=== PATIENT | male | born 1950 | race Caucasian/White ===

== ENCOUNTER → 2017-02-07 | Outpatient (CLI) | payer MEDICARE ==
[2017-02-07 19:28] LABS: ALT 130 U/L (21-72); AST 66 U/L (17-59); Alkaline Phosphatase 44 U/L (38-126); Anion Gap 12 mmol/L; Blood Urea Nitrogen 22 mg/dL (9-20); Calcium 9.7 mg/dL (8.4-10.2); Carbon Dioxide 26 mmol/L (22-30); Chloride 100 mmol/L (98-107); Cholesterol 182 mg/dL (<200); Glucose 202 mg/dL (74-99); HDL Cholesterol 31 mg/dL (40-60); Non-African American GFR(MDRD) >60 (>60 ml/min/1.73 sqM); Potassium 4.5 mmol/L (3.5-5.1); Sodium 138 mmol/L (137-145); Total Bilirubin 1.1 mg/dL (0.2-1.3); Total Protein 7.6 g/dL (6.3-8.2); Triglycerides 312 mg/dL (<150)
[2017-02-07 19:57] LABS: Hemoglobin A1C 7.5 % (4.2-6.1)
== END ==
LOC: MMGSC 13:35
PROVIDERS: ATTEND Family Medicine
DX: I10 Essential (primary) hypertension (principal); E11.9 Type 2 diabetes mellitus without complications; E78.00 Pure hypercholesterolemia, unspecified
CPT/HCPCS: 36415; 80053; 80061; 83036

== ENCOUNTER → 2017-04-17 | Outpatient (CLI) | payer MEDICARE ==
[2017-04-17 19:43] LABS: ALT 108 U/L (21-72); AST 43 U/L (17-59); Alkaline Phosphatase 46 U/L (38-126); Bilirubin, Delta 0.3 mg/dL (0.0-0.2); Cholesterol 158 mg/dL (<200); HDL Cholesterol 34 mg/dL (40-60); Total Bilirubin 0.8 mg/dL (0.2-1.3); Total Protein 7.3 g/dL (6.3-8.2); Triglycerides 199 mg/dL (<150)
[2017-04-17 20:05] LABS: Iron 75 ug/dL (49-181)
[2017-04-17 20:15] LABS: % Iron Saturation 25.2 % (20-50); Total Iron Binding Capacity 298 ug/dL (261-462)
[2017-04-17 20:18] LABS: Hepatitis B Surface Ag Index 0.05
[2017-04-17 20:23] LABS: Hepatitis B Core IgM Index 0.03
[2017-04-17 20:35] LABS: Hepatitis C Virus IgG Ab Negative (Negative); Hepatitis C Virus IgG Index 0.02
== END | disposition home or self-care (01) ==
LOC: MMGSC 10:05
PROVIDERS: ATTEND Family Medicine
DX: E78.5 Hyperlipidemia, unspecified (principal); R74.8 Abnormal levels of other serum enzymes
CPT/HCPCS: 36415; 80061; 80074; 80076; 82390; 82728; 83516; 83540; 83550

== ENCOUNTER → 2017-08-30 | Outpatient (CLI) | payer MEDICARE ==
--- NOTE | 2017-08-30 09:26 | CT ---
EXAMINATION TYPE: CT image guided sinus DATE OF EXAM: 08/30/2017 COMPARISON: 11/07/2013 HISTORY: 67-year-old male Sinusitis, pre op exam for surgical navigational purposes. TECHNIQUE: Contiguous axial scanning of the paranasal sinuses without IV contrast. CT DLP: 594 mGycm Automated exposure control for dose reduction was used. FINDINGS: There is moderate mucosal thickening throughout the paranasal sinuses, more severe in the ethmoid air cells with complete opacification of the left sphenoid sinus, relatively similar prior. There is telma dence of prior Fess with medial maxillary antrectomies. The some rounded masslike areas are present suspected to represent polyposis. A dominant mass previou sly seen in the right nasal cavity is no longer present. There is a new 1.5 cm mass in the left nasal cavity, axial image 22. Rightward nasal septal deviation. Mastoid air cells and middle ear cavities are clear. Orbits and globes are intact. There is mild reac tive katty-osteogenesis of the maxillary sinus lynch compatible with long-standing sinusitis. IMPRESSION: 1. IMAGING PERFORMED FOR INTRAOPERATIVE NAVIGATION. 2. PRIOR FESS AND LONG-STANDING PARANASAL SINUS DISEASE. 3. A SUSPECTED POLYP IN THE RIGHT NASAL CAVITY SEEMS TO HAVE BEEN RESECTED FROM 2013. THERE IS A NEW 1.5 CM SUSPECTED POLYP IN THE LEFT NASAL CAVITY, AXIAL IMAGE 22.
== END | disposition home or self-care (01) ==
LOC: RADCTMAIN 07:48
PROVIDERS: ATTEND Otolaryngology
DX: J32.8 Other chronic sinusitis (principal)
CPT/HCPCS: 70486

== ENCOUNTER 2017-09-14 09:22 | Day surgery (SDC) | payer MEDICARE ==
[2017-09-11 09:01] VITALS: BMI 33.0
[~2017-09-14 09:22] MED LIST: DEXAMETHASONE SOD PHOSPHATE 4 MG/ML 1 ML VIAL IV ONE; FAMOTIDINE 20 MG/2 ML VIAL IV ONE; LACTATED RINGERS 1,000 ML IV SCH; MORPHINE SULFATE 2 MG/ML SYRINGE IV PRN; ONDANSETRON 4 MG/2 ML VIAL IVP ONE; ONDANSETRON 4 MG/2 ML VIAL IVP PRN; ceFAZolin IN SWFI 2 GM/20 ML SYRINGE IVP ONE
[2017-09-14] MEDS: OXYMETAZOLINE 0.05% NASL SPRAY 1 SPRAY BOTTLE NASAL ONE ×5 (09:47→10:11)
[2017-09-14 10:02] LABS: Glucose,Whole Blood 126 mg/dL (75-99)
[2017-09-14] MEDS ORDERED: DEXAMETHASONE SOD PHOS (MDV) 100 MG/10 ML VIAL IVP ONE (10:22)
[2017-09-14] MEDS ORDERED: LIDOCAINE 1% INJ 10MG/ML (20 ML MDV) ONE (11:07)
[2017-09-14] MEDS ORDERED: GLYCOPYRROLATE 0.2 MG/ML 2 ML VIAL ONE (11:07)
[2017-09-14] MEDS ORDERED: PROPOFOL 10 MG/ML 20 ML VIAL IV ONE (11:07)
[2017-09-14] MEDS ORDERED: SUCCINYLCHOLINE CHLORIDE 100 MG/5 ML SYR IV ONE (11:07)
[2017-09-14] MEDS ORDERED: PHENYLEPHRINE-0.9% NACL SYG 1 MG/10 ML SYRINGE ONE (11:07)
[2017-09-14] MEDS ORDERED: ePHEDrine SULFATE/0.9% NACL/PF 50 MG/5 ML SYRINGE IV ONE (11:07)
[2017-09-14] MEDS ORDERED: HYDROmorphone (PF) 1 MG/ML ONE (11:07)
[2017-09-14] MEDS ORDERED: fentaNYL (PF) 50 MCG/ML 2 ML AMP ONE (11:07)
[2017-09-14] MEDS ORDERED: MIDAZOLAM 2 MG/2 ML VIAL ONE (11:07)
[2017-09-14] MEDS ORDERED: BUPIVACAIN-EPI 0.5%-1:200,000 30 ML VIAL SQ ONE ×2 (11:49)
[2017-09-14] MEDS ORDERED: FLUORESCEIN STRIPS 1 MG STRIP MISCELLANE ONE (11:49)
[2017-09-14] MEDS ORDERED: LIDOCAINE 1%-EPI 1:100,000 20 ML VIAL SUBMUCOSAL ONE ×2 (11:49)
[2017-09-14] MEDS ORDERED: EPINEPHrine 1 MG/ML (MDV) 30 ML VIAL TOPICAL ONE (11:50)
[2017-09-14] MEDS ORDERED: SODIUM CHLORIDE 0.9% 1,000 ML IV ONE (12:01)
[2017-09-14] MEDS ORDERED: LACTATED RINGERS 1,000 ML IV ONE (12:01)
[2017-09-14] MEDS ORDERED: DEXAMETHASONE SOD PHOSPHATE 10 MG/ML 1 ML VIAL PO ONE (12:07)
[2017-09-14] MEDS ORDERED: BACITRACIN 500 UNIT/GM OINT 28.4 GM TUBE TOPICAL ONE (12:21)
[2017-09-14 12:46] VITALS: TEMP 97
[2017-09-14 12:52] LABS: Glucose,Whole Blood 194 mg/dL (75-99)
--- NOTE | 2017-09-14 12:56 | P.OP ---
Date of Procedure: 09/14/17 Preoperative Diagnosis: Chronic pansinusitis with polyposis Deviated nasal septum Postoperative Diagnosis: Same Procedure(s) Performed: Septoplasty Image guided bilateral functional endoscopic sinus surgery of all sinuses with polypectomy and placement of propel many's into the frontal sinus, nasal lacrimal duct Anesthesia: ILDA Surgeon: Paul Prajapati Estimated Blood Loss (ml): 25 Pathology: other (Sinonasal tissue and polyps) Condition: stable Disposition: PACU Indications for Procedure: Patient presented to the office with recurrence of his chronic sinusitis. He's had previous polypectomy in the past. He has constant discolored drainage chronic infection his drainage is severe causing nausea and vomiting. He tried multiple antibiotics nasal sprays and histamines with no improvement he has failed medical therapy. He's had previous polypectomy in the past Operative Findings: Patient had polyposis and all sinuses with chronic infection. He had a deviated nasal septum was also corrected. Description of Procedure: This patient was taken to the operative room and placed in the supine position. A general inhalation anesthetic was administered to the patient by the department of anesthesia with a functioning IV line in place. The patient was monitored throughout the entire case by the department of anesthesia. The eyes were taped shut for protection. The patient was placed in a slight reverse Trendelenburg position. The patient had previously utilize Afrin nasal spray preoperatively. The nose was evaluated and the septum lateral nasal wall and inferior turbinates were injected with lidocaine 1% with epinephrine 1 100,000 bilaterally. Approximately 10 minutes were allowed wait for full vasoconstrictive effects to take place. At this point a caudal incision was made over the caudal portion of the left septum down to the mucoperichondrium. A mucoperichondrial flap was elevated on the left side and dissection was carried with use of tunnels posteriorly. We then made a crossover incision through the cartilage to the contralateral side and for the mucoperichondrial flap development was performed to the extent of visualization on the contralateral side. After the cartilage was freed with use of several crosshatching incisions and removal of some redundant strips of septal cartilage, the septum was straightened and placed back in the midline. The septum was sutured fixated to the ovarian groove. Excellent straightening occurred and the septum was visibly straight. Incision was closed with a 40 rapid Vicryl. We utilized a running nonlocking fashion for closure of the incision. A quilting stitch was used to reapproximate the septal flaps with use of a 40 rapid Vicryl. We registered this patient with an image guided system utilizing a [employer]. We utilized this system throughout the sinus surgery for verification of anatomic points. We then entered the nose with a 0 and 30 Shah irais endoscope. Previous to this we did inject the lateral nasal wall and middle turbinate and uncinate process with lidocaine 1% with epinephrine 1 100,000. Approximately 10 minutes were allowed wait for full vasoconstrictive effects to take place. Intranasal polyps were noted. They were noted bilaterally. The intranasal polyps were removed with use of a microdebrider. With use of a microdebrider and a pediatric backbiter, we took down the uncinate process bilaterally. We then opened the maxillary sinuses bilaterally. We utilized a microdebrider for this and entered the maxillary sinuses and removed diseased tissue and polypoid tissue. This was done bilaterally. After the maxillary sinuses were opened and the diseased tissue and polyps were removed we entered the ethmoid bulla and with use of a microdebrider and up-biting Tim, we remove the anterior septations and remove diseased tissue from the anterior ethmoids with direct visualization. We then followed the fovea frontalis through the basal lamella and into the posterior ethmoid air cells and did a total ethmoidectomy with removal of polypoid material. Once the ethmoids cells were all taken down we then entered the sphenoid sinus medially and inferiorly underneath the inferior attachment of the superior turbinate. The sphenoid sinus was opened entered and diseased tissue and polyps were removed bilaterally. This was done with a microdebrider and Blakesley. We then entered the frontal sinuses with a giraffe and up-biting Blabeatrisley entered on the agar nasi cells. We open the frontal sinuses and removed sinus tissue and polypoid tissue that was diseased. We explored the frontal sinuses bilaterally. To summarize all sinuses were open all sinuses were explored and we remove diseased tissue and polyps from the sphenoid maxillary and frontal sinuses. Polyps were removed from the nose. Ethmoid sinuses were opened totally. Nasal pore was inserted and minimal bleeding was encountered. We reinspected the skull base there is no signs of any orbital penetration or signs of any intracranial penetration. The sugical site was reinspected after the nasal pore was placed and no bleeding was seen. Patient was taken to postanesthesia recovery in excellent condition. No intranasal packing was required. No splints were placed
[2017-09-14 13:29] VITALS: RESP 18
[2017-09-14 13:49] VITALS: BP 142/86; PULSE 96
== END 2017-09-14 14:12 | disposition home or self-care (01) ==
LOC: OR 09:22
PROVIDERS: ATTEND Otolaryngology
DX: J32.4 Chronic pansinusitis (principal); J33.8 Other polyp of sinus; J34.2 Deviated nasal septum; E11.9 Type 2 diabetes mellitus without complications; Z79.84 Long term (current) use of oral hypoglycemic drugs; E78.00 Pure hypercholesterolemia, unspecified; I10 Essential (primary) hypertension; M19.90 Unspecified osteoarthritis, unspecified site; G47.33 Obstructive sleep apnea (adult) (pediatric); Z79.2 Long term (current) use of antibiotics; Z79.891 Long term (current) use of opiate analgesic; Z79.899 Other long term (current) drug therapy
CPT/HCPCS: 88305; 88300; 30520; 31256; 31255; 31288; 31276; C2625; C1726; J0171; J2250; J1100 ×2; J2405; J2001; J3010; J1170; J2370; J0330; J2704

== ENCOUNTER → 2017-10-24 | Outpatient (CLI) | payer MEDICARE ==
[2017-10-24 20:26] LABS: ALT 86 U/L (21-72); AST 44 U/L (17-59); Albumin 4.3 g/dL (3.5-5.0); Alkaline Phosphatase 47 U/L (38-126); Anion Gap 10 mmol/L; Blood Urea Nitrogen 21 mg/dL (9-20); Calcium 9.6 mg/dL (8.4-10.2); Carbon Dioxide 25 mmol/L (22-30); Chloride 105 mmol/L (98-107); Cholesterol 154 mg/dL (<200); Glucose 149 mg/dL (74-99); HDL Cholesterol 34 mg/dL (40-60); LDL Cholesterol,Calculated 90 mg/dL (0-99); Potassium 4.7 mmol/L (3.5-5.1); Sodium 140 mmol/L (137-145); Total Bilirubin 0.7 mg/dL (0.2-1.3); Total Protein 7.3 g/dL (6.3-8.2); Triglycerides 151 mg/dL (<150)
[2017-10-25 01:43] LABS: Hemoglobin A1C 6.9 % (4.0-6.0)
== END | disposition home or self-care (01) ==
LOC: MMGSC 11:09
PROVIDERS: ATTEND Family Medicine
DX: E78.5 Hyperlipidemia, unspecified (principal); I10 Essential (primary) hypertension; E11.9 Type 2 diabetes mellitus without complications; R94.5 Abnormal results of liver function studies
CPT/HCPCS: 36415; 80053; 80061; 83036

== ENCOUNTER → 2018-03-05 | Outpatient (CLI) | payer MEDICARE ==
--- NOTE | 2018-03-05 10:06 | US ---
EXAMINATION TYPE: US liver DATE OF EXAM: 03/05/2018 COMPARISON: NONE CLINICAL HISTORY: R94.5 ABN LIVER FUNCTIONS; gallbladder removed approximately 10 years ago; on meds for cholesterol and A1C; nausea with sinus drainage EXAM MEASUREMENTS: Liver Length: 16.5 cm Gallbladder Wall: surgically removed CBD: 0.6 cm Right Kidney: 10.7 x 5.6 x 5.0 cm Pancreas: wnl Liver: Hyperechoic hepatic echotexture most commonly relating to underlying hepatic steatosis and kendrick iting evaluation for hepatic masses. Gallbladder: surgically absent Evidence for sonographic Siu's sign: no CBD: wnl Right Kidney: small hyperechoic, shadowing focus mid pole near corticomedullary border = 0.3 x 0.4 x 0.2cm. IMPRESSION: 1. Hyperechoic hepatic echotexture most commonly relating to underlying hepatic steatosis appearing m oderate in degree. 2. Solitary 4 mm nonobstructing right renal calculus. No hydronephrosis.
== END | disposition home or self-care (01) ==
LOC: RADUSWWP 09:14
PROVIDERS: ATTEND Family Medicine
DX: N20.0 Calculus of kidney (principal); K76.0 Fatty (change of) liver, not elsewhere classified; R79.89 Other specified abnormal findings of blood chemistry
CPT/HCPCS: 76705

== ENCOUNTER → 2018-03-26 | Outpatient (CLI) | payer MEDICARE ==
--- NOTE | 2018-03-26 17:42 | CONS ---
CONSULTATION REASON FOR CONSULTATION: Obstructive sleep apnea. This is a 68-year-old male patient who is coming in with feeling excessively tired and sleepy during the night, and along with that he is having sleep fragmentation and frequent nocturnal arousals, and he is interested in pursuing the diagnosis of sleep apnea. Note that he had home sleep testing many years back and he was found to have severe obstructive sleep apnea. He claims that his AHI back then was above 50. He was given CPAP treatment briefly, which he did not take on a regular basis, and he quit the treatment. Subsequently his condition got worse and he is coming in for further advice. He is currently retired. He goes to bed around 11:30 p.m., wakes up at 8 a.m. in the morning and he feels non-refreshed during the day. His current Moultrie score is 6. He is able to drive a car without having to fall sleep. No other complaints otherwise for now. PAST MEDICAL HISTORY: 1. Obstructive sleep apnea per history. 2. Hypertension. 3. Hyperlipidemia. 4. Diabetes mellitus, type 2. SURGICAL HISTORY: 1. Two hip replacements involving the right. 2. Cholecystectomy. 3. Sinus surgery x5 for nasal polyposis, the last one being in August of 2017 under the care of Dr. Prajapati. DRUG ALLERGIES: NOT KNOWN. OUTPATIENT MEDICATIONS: The patient is on various medications, including medication for blood sugar, for diabetes, hypertension and hyperlipidemia. Unable to bring out the medication list. He will bring in his medication list with him. SOCIAL HISTORY: Nonsmoker. No history of alcoholism. No history of IV drugs. FAMILY HISTORY: Noncontributory, yet it is negative for sleep apnea. REVIEW OF SYSTEMS: Twelve-point review of systems was done. The patient has excessive fatigue and sleepiness. He snores and he stops breathing. No nocturia. No grinding of the teeth. No sleepwalking. No panic. No anxiety. No palpitation. No heartburn. No restlessness in his lower extremities. No sleepwalking or sleeptalking. No claustrophobia. No anxiety. No depression. PHYSICAL EXAMINATION: His current BP is 127/70, pulse 79, respirations 16, temperature 98.0, saturation 95% on room air. Weight is 234. Height is 5 feet 9 inches. Moultrie score is 6. Neck size is 19 inches. BMI is 34.5. GENERAL APPEARANCE: Calm, comfortable. Head is atraumatic, normocephalic. Neck is short, supple. Crowding in posterior pharynx. No goiter or neck masses. LUNGS: Clear to auscultation. Heart sounds are regular rate and rhythm. Normal S1, S2. No S3, S4. No murmurs. ABDOMEN: Soft, nontender. No organomegaly. EXTREMITIES: No edema. No cyanosis or clubbing. NEUROLOGIC: Alert and oriented x3. There is no focal neurological deficit. PSYCHIATRIC: Negative for anxiety or depression. IMPRESSION: 1. Obstructive sleep apnea per history. The patient is coming in for reevaluation. 2. Excessive daytime sleepiness. Moultrie score is 6. 3. Hypertension. 4. Hyperlipidemia. 5. Diabetes mellitus. 6. Degenerative arthritis. PLAN: Will proceed with other screening polysomnogram to evaluate for the presence of sleep apnea. If significant disease is identified, the patient will be offered treatment based on the fact that he is quite symptomatic. Encourage weight loss. Regulate sleep schedule. Implement good sleep hygiene measures. Will continue to follow. MMODL / IJN: [id number] /
== END | disposition home or self-care (01) ==
LOC: SLEEP 15:33
PROVIDERS: ATTEND Internal Medicine Critical Care Medicine
DX: G47.33 Obstructive sleep apnea (adult) (pediatric) (principal); I10 Essential (primary) hypertension; E78.5 Hyperlipidemia, unspecified; E11.9 Type 2 diabetes mellitus without complications; M19.90 Unspecified osteoarthritis, unspecified site; Z90.49 Acquired absence of other specified parts of digestive tract; Z98.890 Other specified postprocedural states
CPT/HCPCS: 99211

== ENCOUNTER → 2018-09-03 | Outpatient (CLI) | payer MEDICARE ==
--- NOTE | 2018-09-03 16:31 | PN ---
PROGRESS NOTE 68-year-old male patient coming in for a compliance check regarding obstructive sleep apnea. This patient was diagnosed having severe YEMI with an AHI of 39.7. Currently he is on APAP with a minimum pressure of 8, maximum pressure of 20. The patient is reporting marked improvement in sleep quality in general. He is waking up much more alert and awake during the day. Based on the compliance data, the patient has been averaging around 7.9 hours of CPAP use per night. His average CPAP pressure is around 12.9. AHI while on treatment is down to 2.7. He is using his CPAP every night and his treatment is successful for now and there is no emergence of any central events based on the compliance dated as recorded on today's evaluation. He is using AirFit P10 nose pillows. No other complaints otherwise for now. REVIEW OF SYSTEM: Was done. 12 point review of system is negative for any other things other than those things mentioned above in history of present illness. No snoring while on the CPAP therapy. No nighttime grinding of the teeth. No waking up gasping for air. No nocturnal chest pain, heartburn, palpitation or shortness of breath. PHYSICAL EXAMINATION: VITAL SIGNS: BP is 134/76, pulse 90 respirations 16, temperature 98.2. Saturation 95% on room air. Weight is 238. Height is 5 feet 9 inches, BMI 35.1. GENERAL APPEARANCE: Appears calm and comfortable. Head is atraumatic, normocephalic. NECK: Supple. There is no JVD. No goiter or neck masses. LUNGS: Diminished breath sounds. Otherwise clear. HEART: Sounds regular rate and rhythm. Normal S1, S2. No S3. No murmurs. ABDOMEN: Soft, nontender. No organomegaly. EXTREMITIES: No edema. No cyanosis or clubbing. NEUROLOGIC: Alert and oriented x3. There is no focal neurological deficits. PSYCHIATRIC: Negative for anxiety or depression. IMPRESSION: 1. Symptomatic severe obstructive sleep apnea with an AHI of 39.7. The patient underwent successful APAP treatment. Compliance data was checked. Clinical response is very good for now. 2. Obesity. 3. Hypertension. 4. Hyperlipidemia. 5. Diabetes mellitus. PLAN: 1. Encourage weight loss. 2. Continue APAP therapy and make the following adjustment. Set the minimum pressure at 8, maximum pressure of 15. Continue using AirFit P10 nose pillows. 3. Implement good sleep hygiene measures. 4. See me back in a year's time in follow up. His treatment is successful for now. MMODL / IJN: [id number] /
== END | disposition home or self-care (01) ==
LOC: SLEEP 14:24
PROVIDERS: ATTEND Internal Medicine Critical Care Medicine
DX: G47.33 Obstructive sleep apnea (adult) (pediatric) (principal); E66.9 Obesity, unspecified; I10 Essential (primary) hypertension; E78.5 Hyperlipidemia, unspecified; E11.9 Type 2 diabetes mellitus without complications; Z99.89 Dependence on other enabling machines and devices; Z68.35 Body mass index [BMI] 35.0-35.9, adult

== ENCOUNTER 2019-09-30 21:26 | Emergency (ER) | payer MEDICARE ==
[2019-09-30 21:30] VITALS: RESP 18
[2019-09-30 22:13] LABS: Appearance,Urine Clear (Clear); Bilirubin,Urine Negative (Negative); Blood,Urine Negative (Negative); Color,Urine Yellow; Glucose,Urine (UA) Trace (Negative); Ketones,Urine Negative (Negative); Leukocyte Esterase,Urine Negative (Negative); Nitrite,Urine Negative (Negative); PH, Urine 6.5 (5.0-8.0); Protein,Urine Trace (Negative); Specific Gravity,Urine 1.028 (1.001-1.035); Urobilinogen,Urine <2.0 mg/dL (<2.0)
[2019-09-30] MEDS ORDERED: SODIUM CHLORIDE 0.9% 1,000 ML IV STA (22:23)
[2019-09-30 22:45] LABS: Basophils % (A) 0 %; Eosinophils # (A) 0.2 k/uL (0-0.7); Eosinophils % (A) 3 %; HCT 49.3 % (39.0-53.0); HGB 17.1 gm/dL (13.0-17.5); Lymphocytes # (A) 2.3 k/uL (1.0-4.8); Lymphocytes % (A) 28 %; MCH 30.5 pg (25.0-35.0); MCHC 34.7 g/dL (31.0-37.0); MCV 87.8 fL (80.0-100.0); Mean Platelet Volume 7.4; Monocytes # (A) 0.6 k/uL (0-1.0); Monocytes % (A) 7 %; Neutrophils % (A) 60 %; Platelet Count 167 k/uL (150-450); RBC 5.61 m/uL (4.30-5.90); RDW 13.2 % (11.5-15.5); WBC 8.3 k/uL (3.8-10.6)
[2019-09-30 22:53] LABS: Albumin 4.6 g/dL (3.5-5.0); Total Bilirubin 0.8 mg/dL (0.2-1.3); Total Protein 7.5 g/dL (6.3-8.2)
--- NOTE | 2019-10-01 00:40 | CT ---
INDICATION: Abdominal pain TECHNIQUE: CT acquisition is performed through the abdomen and pelvis following the administration of 80 mL Isovue-300 IV contrast. Sagittal and coronal reformatted images are provided. DOSE INFORMATION: DLP 1613.6 mGy-cm. This CT exam was performed using one or more of the following dose reduction techniques: automated exposure control, adjustment of the mA and/or kV according to patient size, and/or use of iterative reconstruction technique. COMPARISON: None. FINDINGS: There is minor atelectasis at the lung bases. There is a small sliding- type hiatal hernia. Low-attenuation of the liver is consistent with steatosis. The gallbladder is surgically absent. There is no biliary dilatation. The spleen, pancreas, and adrenal glands are normal. Kidneys enhance symmetrically. There is no hydronephrosis. There is mild aortoiliac atherosclerosis without aneurysm. There is no lymphadenopathy. The appendix is normal. There is no small or large bowel obstruction. There are no inflammatory changes of the bowel. The prostate is borderline enlarged. The urinary bladder is normal. There is a right total hip arthroplasty. There are no acute osseous findings. IMPRESSION: 1. No CT evidence of acute or inflammatory process in the abdomen or pelvis. 2. Small hiatal hernia. 3. Cholecystectomy.
--- NOTE | 2019-10-01 01:06 | ED ---
Abdominal Pain HPI - General Chief Complaint: Abdominal Pain Stated Complaint: Abd pain, diverticulitis Time Seen by Provider: 09/30/19 22:18 Source: patient Mode of arrival: ambulatory Limitations: no limitations - History of Present Illness Initial Comments: 69-year-old male patient presents to the emergency department today for evaluation of lower abdominal pain. Patient states she's had the pain for the last 2-3 days. States that he has had one to 2 loose stools per day. States he was seen at urgent care today and was sent here for evaluation of possible diverticulitis. He denies fever or chills. Denies nausea or vomiting. Denies any hematochezia or melena. Denies history of diverticulitis or any knowledge of diverticulosis. He denies any history of abdominal surgeries. Patient denies any recent rash, shortness breath, chest pain, back pain, numbness, tingling, dizziness, weakness, hematuria, dysuria, urinary urgency, urinary frequency, headache, visual changes, or any other complaints. - Related Data Home Medications Medication Instructions Recorded Confirmed Amoxic-Pot Clav 875-125Mg 1 tab PO Q12HR 09/11/17 09/14/17 [Augmentin 875-125] Glimepiride [Amaryl] 2 mg PO HS 09/11/17 09/14/17 Lisinopril [Zestril] 10 mg PO HS 09/11/17 09/14/17 Simvastatin 40 mg PO HS 09/11/17 09/14/17 predniSONE 30 mg PO HS 09/11/17 09/14/17 sitaGLIPtin PHOSPHATE [Januvia] 100 mg PO HS 09/11/17 09/14/17 Previous Rx's Medication Instructions Recorded Amoxicillin/Potassium Clav 1 each PO Q12HR #20 tab 09/14/17 [Augmentin 875-125 Tablet] Hydrocodone/Acetaminophen [[place] 1 - 2 each PO Q6HR PRN #40 tab 09/14/17 5-325] predniSONE 20 mg PO DIRECTED #15 tab 09/14/17 Allergies Allergy/AdvReac Type Severity Reaction Status Date / Time No Known Allergies Allergy Verified 09/30/19 21:30 Review of Systems ROS Statement: Those systems with pertinent positive or pertinent negative responses have been documented in the HPI. ROS Other: All systems not noted in ROS Statement are negative. Past Medical History Past Medical History: Diabetes Mellitus, Hyperlipidemia, Hypertension History of Any Multi-Drug Resistant Organisms: None Reported Past Surgical History: Cholecystectomy, Orthopedic Surgery Additional Past Surgical History / Comment(s): sinus surgery Past Psychological History: No Psychological Hx Reported Smoking Status: Never smoker Past Alcohol Use History: None Reported Past Drug Use History: None Reported General Exam Limitations: no limitations General appearance: alert, in no apparent distress, other (This is a well- developed, well-nourished adult male patient in no acute distress. Vital signs upon presentation are temperature 98.2F, pulse 95, respirations 18, blood pressure 142/77, pulse ox 97% on room air per) Eye exam: Present: normal appearance, PERRL, EOMI. Absent: scleral icterus, conjunctival injection, periorbital swelling ENT exam: Present: normal exam, normal oropharynx, mucous membranes moist Respiratory exam: Present: normal lung sounds bilaterally. Absent: respiratory distress, wheezes, rales, rhonchi, stridor Cardiovascular Exam: Present: regular rate, normal rhythm, normal heart sounds. Absent: systolic murmur, diastolic murmur, rubs, gallop, clicks GI/Abdominal exam: Present: soft, normal bowel sounds. Absent: distended, tenderness, guarding, rebound, rigid Neurological exam: Present: alert, oriented X3, CN II-XII intact Psychiatric exam: Present: normal affect, normal mood Skin exam: Present: warm, dry, intact, normal color. Absent: rash Course Vital Signs 09/30/19 10/01/19 21:27 01:15 Temperature 98.2 F 98.4 F Pulse Rate 95 82 Respiratory 18 18 Rate Blood Pressure 142/77 135/68 O2 Sat by Pulse 97 96 Oximetry Medical Decision Making - Medical Decision Making 69-year-old male patient presents to the emergency department today for evaluation of lower abdominal discomfort. Physical examination reveals tenderness over the lower abdomen. Labs reviewed and are unremarkable. CT abdomen and pelvis was obtained and showed no acute abnormalities. Patient declined pain medication while in the department. I did discuss all results with him. We did discuss gastroenteritis as a cause for his symptoms. Symptoms persist he is instructed to discuss colonoscopy with his primary care doctor. To be discharged to follow up with his primary care physician for recheck in 1-2 days. Return parameters were discussed in detail. He verbalizes understanding and agrees with this plan. - Lab Data Result diagrams: 12/10/19 22:33 09/30/19 22:33 Lab Results 09/30/19 09/30/19 09/30/19 Range/Units 21:20 22:33 22:33 WBC 8.3 (3.8-10.6) k/uL RBC 5.61 (4.30-5.90) m/uL Hgb 17.1 (13.0-17.5) gm/dL Hct 49.3 (39.0-53.0) % MCV 87.8 (80.0-100.0) fL MCH 30.5 (25.0-35.0) pg MCHC 34.7 (31.0-37.0) g/dL RDW 13.2 (11.5-15.5) % Plt Count 167 (150-450) k/uL Neutrophils % 60 % Lymphocytes % 28 % Monocytes % 7 % Eosinophils % 3 % Basophils % 0 % Neutrophils # 5.0 (1.3-7.7) k/uL Lymphocytes # 2.3 (1.0-4.8) k/uL Monocytes # 0.6 (0-1.0) k/uL Eosinophils # 0.2 (0-0.7) k/uL Basophils # 0.0 (0-0.2) k/uL Sodium 139 (137-145) mmol/L Potassium 4.0 (3.5-5.1) mmol/L Chloride 102 (98-107) mmol/L Carbon Dioxide 26 (22-30) mmol/L Anion Gap 11 mmol/L BUN 22 H (9-20) mg/dL Creatinine 1.31 H (0.66-1.25) mg/dL Est GFR (CKD-EPI)AfAm 65 (>60 ml/min/1.73 sqM) Est GFR (CKD-EPI)NonAf 56 (>60 ml/min/1.73 sqM) Glucose 106 H (74-99) mg/dL Plasma Lactic Acid Erick (0.7-2.0) mmol/L Calcium 10.0 (8.4-10.2) mg/dL Total Bilirubin 0.8 (0.2-1.3) mg/dL AST 40 (17-59) U/L ALT 78 H (21-72) U/L Alkaline Phosphatase 39 (38-126) U/L Total Protein 7.5 (6.3-8.2) g/dL Albumin 4.6 (3.5-5.0) g/dL Amylase 52 (30-110) U/L Lipase 112 (23-300) U/L Urine Color Yellow Urine Appearance Clear (Clear) Urine pH 6.5 (5.0-8.0) Ur Specific [place] 1.028 (1.001-1.035) Urine Protein Trace H (Negative) Urine Glucose (UA) Trace H (Negative) Urine Ketones Negative (Negative) Urine Blood Negative (Negative) Urine Nitrite Negative (Negative) Urine Bilirubin Negative (Negative) Urine Urobilinogen <2.0 (<2.0) mg/dL Ur Leukocyte Esterase Negative (Negative) 09/30/19 Range/Units 22:33 WBC (3.8-10.6) k/uL RBC (4.30-5.90) m/uL Hgb (13.0-17.5) gm/dL Hct (39.0-53.0) % MCV (80.0-100.0) fL MCH (25.0-35.0) pg MCHC (31.0-37.0) g/dL RDW (11.5-15.5) % Plt Count (150-450) k/uL Neutrophils % % Lymphocytes % % Monocytes % % Eosinophils % % Basophils % % Neutrophils # (1.3-7.7) k/uL Lymphocytes # (1.0-4.8) k/uL Monocytes # (0-1.0) k/uL Eosinophils # (0-0.7) k/uL Basophils # (0-0.2) k/uL Sodium (137-145) mmol/L Potassium (3.5-5.1) mmol/L Chloride (98-107) mmol/L Carbon Dioxide (22-30) mmol/L Anion Gap mmol/L BUN (9-20) mg/dL Creatinine (0.66-1.25) mg/dL Est GFR (CKD-EPI)AfAm (>60 ml/min/1.73 sqM) Est GFR (CKD-EPI)NonAf (>60 ml/min/1.73 sqM) Glucose (74-99) mg/dL Plasma Lactic Acid Erick 1.9 (0.7-2.0) mmol/L Calcium (8.4-10.2) mg/dL Total Bilirubin (0.2-1.3) mg/dL AST (17-59) U/L ALT (21-72) U/L Alkaline Phosphatase (38-126) U/L Total Protein (6.3-8.2) g/dL Albumin (3.5-5.0) g/dL Amylase (30-110) U/L Lipase (23-300) U/L Urine Color Urine Appearance (Clear) Urine pH (5.0-8.0) Ur Specific [place] (1.001-1.035) Urine Protein (Negative) Urine Glucose (UA) (Negative) Urine Ketones (Negative) Urine Blood (Negative) Urine Nitrite (Negative) Urine Bilirubin (Negative) Urine Urobilinogen (<2.0) mg/dL Ur Leukocyte Esterase (Negative) - Radiology Data Radiology results: report reviewed CT abdomen and pelvis is obtained, report was reviewed in its entirety. There is no acute intra-abdominal process. Disposition Clinical Impression: Abdominal pain Disposition: HOME SELF-CARE Condition: Good Instructions (If sedation given, give patient instructions): Abdominal Pain (E D) Additional Instructions: Increase fluids. Rest. Follow up with your primary care physician for recheck in 2 days. Return to the emergency department immediately for any new, worsening, or concerning symptoms. Is patient prescribed a controlled substance at d/c from ED?: No Referrals: Marylu Guevara MD [Primary Care Provider] - 1-2 days Time of Disposition: 01:06
[2019-10-01 01:17] VITALS: BP 135/68; PULSE 82; TEMP 98.4
== END 2019-10-01 01:16 | disposition home or self-care (01) ==
LOC: EC 21:26
DX: R10.30 Lower abdominal pain, unspecified (principal); E11.9 Type 2 diabetes mellitus without complications; E78.5 Hyperlipidemia, unspecified; I10 Essential (primary) hypertension; Z90.49 Acquired absence of other specified parts of digestive tract; Z53.29 Procedure and treatment not carried out because of patient's decision for other reasons; Z79.84 Long term (current) use of oral hypoglycemic drugs; Z79.52 Long term (current) use of systemic steroids; Z79.899 Other long term (current) drug therapy
CPT/HCPCS: 36415; 74177; 80053; 81003; 82150; 83605; 83690; 85025; 96360; 96361; 99284

== ENCOUNTER 2020-03-19 14:53 | Emergency (ER) | payer MEDICARE ==
[2020-03-19 15:11] VITALS: RESP 18; TEMP 98.8
[2020-03-19] MEDS ORDERED: SODIUM CHLORIDE 0.9% 500 ML 500 ML IV SCH (16:30)
[2020-03-19 16:51] LABS: Basophils # (A) 0.1 k/uL (0-0.2); Basophils % (A) 1 %; Eosinophils # (A) 0.2 k/uL (0-0.7); Eosinophils % (A) 2 %; HCT 47.2 % (39.0-53.0); HGB 15.8 gm/dL (13.0-17.5); Lymphocytes # (A) 1.9 k/uL (1.0-4.8); Lymphocytes % (A) 24 %; MCH 29.6 pg (25.0-35.0); MCHC 33.5 g/dL (31.0-37.0); MCV 88.3 fL (80.0-100.0); Mean Platelet Volume 7.4; Monocytes # (A) 0.5 k/uL (0-1.0); Monocytes % (A) 6 %; Neutrophils # (A) 5.3 k/uL (1.3-7.7); Neutrophils % (A) 66 %; Platelet Count 183 k/uL (150-450); RBC 5.34 m/uL (4.30-5.90); RDW 13.3 % (11.5-15.5); WBC 8.2 k/uL (3.8-10.6)
[2020-03-19] MEDS ORDERED: SODIUM CHLORIDE 0.9% 1,000 ML IV ONE (16:55)
[2020-03-19 17:00] LABS: Albumin 4.5 g/dL (3.5-5.0); Calcium 9.5 mg/dL (8.4-10.2); Potassium 4.4 mmol/L (3.5-5.1); Total Bilirubin 0.8 mg/dL (0.2-1.3); Total Protein 7.5 g/dL (6.3-8.2)
--- NOTE | 2020-03-19 17:59 | CT ---
EXAMINATION TYPE: CT soft tissue neck w con DATE OF EXAM: 03/19/2020 HISTORY: Abscess right side of chin. COMPARISON: Sinus CT dated 08/30/2017 CT DLP: 505.4 mGycm. Automated Exposure Control for Dose Reduction was Utilized. TECHNIQUE: CT scan of the neck is performed with IV Contrast, patient injected with 100 mL of Isovue 300, axial images are obtained, coronal and sagittal reformatted images are reviewed. FINDINGS: Airway: The airway is narrowed by the enlarged tonsils. Multiple calcifications are seen in the tonsi ls. Remainder the airway is unremarkable. Parotid/submandibular glands: No gross abnormality seen. Carotid/Vascular Structures: Conventional three-vessel branch pattern of the aortic arch is seen. Com mon carotid arteries and carotid bulbs are patent without hemodynamically significant stenosis. Mild atherosclerosis of the bilateral carotid bulbs. Vertebral arteries are codominant and patent with min imal atherosclerosis. Osseous Structures: Moderate mucosal thickening of the ethmoid and frontal sinuses with mild mucosal thickening of the maxillary sinuses and postsurgical change seen. Polypoid lesion of the left maxilla ry sinus nondependently measures 9 mm. Mastoid air cells are well aerated. Straightening of the usual cervical lordosis may relate to muscular strain/spasm or patient positioning. Other: There is focal skin thickening of the skin overlying the inferior right mandible. There is a s mall professional 5 mm abscess with foci of air and surrounding inflammatory fat stranding. There is thickening of the adjacent platysma muscle, likely reactive. There are multiple rounded prominent sub mental lymph nodes, likely reactive. A small amount of fluid is seen adjacent to the platysma, also l ikely reactive. Lung apices demonstrate minimal dependent subsegmental atelectasis. Dental fillings creates spray art ifact and partially obscured direct surrounding visualization. Limited images of the brain are subopt imally examination given technique. IMPRESSION: 1. Superficial 5 mm right submandibular abscess with inflammatory fat stranding suggesting cellulitis and a small amount of fluid along the right platysma muscle, likely reactive. Multiple prominent lym ph nodes adjacent to this are also likely reactive. 2. Enlarged tonsils cause airway narrowing. 3. Acute on chronic sinusitis. Left maxillary mucosal retention cyst versus polyp.
[2020-03-19 18:27] VITALS: BP 135/71; PULSE 73
[2020-03-19] MEDS ORDERED: LIDOCAINE 1% INJ 10MG/ML (20 ML MDV) SQ ONE (18:29)
[2020-03-19] MEDS ORDERED: cefTRIAXone IN SWFI 1,000 MG/10 ML SYRINGE IVP STA (18:29)
--- NOTE | 2020-03-19 19:00 | ED ---
General Adult HPI - General Chief complaint: Skin/Abscess/Foreign Body Stated complaint: mass on chin Time Seen by Provider: 03/19/20 16:13 Source: patient, RN notes reviewed Mode of arrival: ambulatory Limitations: no limitations - History of Present Illness Initial comments: 62-year-old male with a past medical history of [id number] diabetes mellitus, hyperlipidemia, hypertension presents to the emergency department for a chief complaint of abscess under the right chin. Patient states that this has been ongoing for about 6 days now. Patient started as a small bump under his chin. Patient saw his primary care doctor 4 days ago and was started on Bactrim however it was not improving. He therefore saw them again yesterday and they did drain the area. Patient states it started to improve but now is back to her little bike yesterday. He does not think it is bigger than yesterday. Patient is only taking Bactrim and is not currently on Keflex. He denies fevers or chills. Patient has no other complaints at this time including shortness of breath, chest pain, abdominal pain, nausea or vomiting, headache, or visual changes. - Related Data Home Medications Medication Instructions Recorded Confirmed Amoxic-Pot Clav 875-125Mg 1 tab PO Q12HR 09/11/17 09/14/17 [Augmentin 875-125] Glimepiride [Amaryl] 2 mg PO HS 09/11/17 09/14/17 Lisinopril [Zestril] 10 mg PO HS 09/11/17 09/14/17 Simvastatin 40 mg PO HS 09/11/17 09/14/17 predniSONE 30 mg PO HS 09/11/17 09/14/17 sitaGLIPtin PHOSPHATE [Januvia] 100 mg PO HS 09/11/17 09/14/17 Previous Rx's Medication Instructions Recorded Amoxicillin/Potassium Clav 1 each PO Q12HR #20 tab 09/14/17 [Augmentin 875-125 Tablet] Hydrocodone/Acetaminophen [[place] 1 - 2 each PO Q6HR PRN #40 tab 09/14/17 5-325] predniSONE [Deltasone] 20 mg PO DIRECTED #15 tab 09/14/17 Cephalexin [Keflex] 500 mg PO Q6HR 10 Days #40 cap 03/19/20 Allergies Allergy/AdvReac Type Severity Reaction Status Date / Time No Known Allergies Allergy Verified 03/19/20 15:10 Review of Systems ROS Statement: Those systems with pertinent positive or pertinent negative responses have been documented in the HPI. ROS Other: All systems not noted in ROS Statement are negative. Past Medical History Past Medical History: Diabetes Mellitus, Hyperlipidemia, Hypertension History of Any Multi-Drug Resistant Organisms: None Reported Past Surgical History: Cholecystectomy, Orthopedic Surgery Additional Past Surgical History / Comment(s): sinus surgery, right hip Past Psychological History: No Psychological Hx Reported Smoking Status: Never smoker Past Alcohol Use History: None Reported Past Drug Use History: None Reported General Exam Limitations: no limitations General appearance: alert, in no apparent distress Head exam: Present: atraumatic, normocephalic, normal inspection Eye exam: Present: normal appearance, PERRL, EOMI. Absent: scleral icterus, conjunctival injection, periorbital swelling ENT exam: Present: normal exam, normal oropharynx (Oropharynx is patent), mucous membranes moist, TM's normal bilaterally, normal external ear exam, other (Patient has a 3 cm x 3 cm area of induration and erythema noted to the inferior right chin area. This is not extending into the neck.) Neck exam: Present: normal inspection, full ROM. Absent: tenderness, meningismus, lymphadenopathy Respiratory exam: Present: normal lung sounds bilaterally. Absent: respiratory distress, wheezes, rales, rhonchi, stridor Cardiovascular Exam: Present: regular rate, normal rhythm, normal heart sounds. Absent: systolic murmur, diastolic murmur, rubs, gallop, clicks GI/Abdominal exam: Present: soft, normal bowel sounds. Absent: distended, tenderness, guarding, rebound, rigid Neurological exam: Present: alert Course Vital Signs 03/19/20 03/19/20 15:07 18:26 Temperature 98.8 F Pulse Rate 81 73 Respiratory 18 18 Rate Blood Pressure 165/86 135/71 O2 Sat by Pulse 97 95 Oximetry Medical Decision Making - Medical Decision Making Vitals are stable. CBC CMP is unremarkable. White blood cell count is 8. Left tissue neck CT did show a superficial 5 mm right submandibular abscess with inflammatory fats and exudative sting cellulitis and a small amount of fluid along the right platysma muscle likely reactive. Lymph nodes are also reactive adjacently. Enlarged tonsils causing airway narrowing. However patient denies any difficulty swallowing or breathing. Denies any changes in his throat. Clinically tonsils appear within normal limits. I reviewed this imaging report with Dr. Romero. It is likely that most of this erythema is secondary to cellulitis and sent has not been on Keflex. it will be beneficial to cover with Keflex in addition to Bactrim. He was given a dose of Rocephin. I also removed packing and drain the area again and did expell a small amount of fluid. Wound culture pending. At this time patient is stable for discharge home but I did discuss that he needs to return immediately for any worsening symptoms. Abscess is growing he agrees to return. Otherwise she will follow-up with primary care. - Lab Data Result diagrams: 03/19/20 16:40 03/19/20 16:40 Lab Results 03/19/20 03/19/20 03/19/20 Range/Units 16:40 16:40 16:40 WBC 8.2 (3.8-10.6) k/uL RBC 5.34 (4.30-5.90) m/uL Hgb 15.8 (13.0-17.5) gm/dL Hct 47.2 (39.0-53.0) % MCV 88.3 (80.0-100.0) fL MCH 29.6 (25.0-35.0) pg MCHC 33.5 (31.0-37.0) g/dL RDW 13.3 (11.5-15.5) % Plt Count 183 (150-450) k/uL Neutrophils % 66 % Lymphocytes % 24 % Monocytes % 6 % Eosinophils % 2 % Basophils % 1 % Neutrophils # 5.3 (1.3-7.7) k/uL Lymphocytes # 1.9 (1.0-4.8) k/uL Monocytes # 0.5 (0-1.0) k/uL Eosinophils # 0.2 (0-0.7) k/uL Basophils # 0.1 (0-0.2) k/uL Sodium 137 (137-145) mmol/L Potassium 4.4 (3.5-5.1) mmol/L Chloride 101 (98-107) mmol/L Carbon Dioxide 23 (22-30) mmol/L Anion Gap 13 mmol/L BUN 20 (9-20) mg/dL Creatinine 1.18 (0.66-1.25) mg/dL Est GFR (CKD-EPI)AfAm 73 (>60 ml/min/1.73 sqM) Est GFR (CKD-EPI)NonAf 63 (>60 ml/min/1.73 sqM) Glucose 117 H (74-99) mg/dL Plasma Lactic Acid Erick 1.0 (0.7-2.0) mmol/L Calcium 9.5 (8.4-10.2) mg/dL Total Bilirubin 0.8 (0.2-1.3) mg/dL AST 28 (17-59) U/L ALT 47 (4-49) U/L Alkaline Phosphatase 52 (38-126) U/L Total Protein 7.5 (6.3-8.2) g/dL Albumin 4.5 (3.5-5.0) g/dL Disposition Clinical Impression: Abscess Disposition: HOME SELF-CARE Condition: Good Instructions (If sedation given, give patient instructions): Abscess (ED) Additional Instructions: Please continue to take your Bactrim as directed. Add Keflex to Bactrim as directed. After about 2 days you can remove the packing or follow-up with primary care for this. Monitor for worsening symptoms. If symptoms are worsening return to the emergency room. Otherwise follow-up with primary care. Prescriptions: Cephalexin [Keflex] 500 mg PO Q6HR 10 Days #40 cap Is patient prescribed a controlled substance at d/c from ED?: No Referrals: Marylu Guevara MD [Primary Care Provider] - 1-2 days Time of Disposition: 18:59
== END 2020-03-19 19:14 | disposition home or self-care (01) ==
LOC: EC 14:53
DX: K12.2 Cellulitis and abscess of mouth (principal); J35.1 Hypertrophy of tonsils; E11.9 Type 2 diabetes mellitus without complications; I10 Essential (primary) hypertension; E78.5 Hyperlipidemia, unspecified; Z79.84 Long term (current) use of oral hypoglycemic drugs; Z79.899 Other long term (current) drug therapy; Z79.51 Long term (current) use of inhaled steroids
CPT/HCPCS: 36415; 80053; 83605; 85025; 87040; 87070; 87205; 87077; 87186; 70491; 99284; 96374; 96361; J2001; J0696; Q9967

== ENCOUNTER 2020-08-25 03:54 | Emergency (ER) | payer MEDICARE ==
[2020-08-25 04:01] VITALS: TEMP 98.4
[2020-08-25] MEDS ORDERED: KETOROLAC 15 MG/ML 1 ML VIAL IVP STA (04:27)
[2020-08-25] MEDS ORDERED: DIAZEPAM 5 MG/ML 2 ML INJ IVP STA (04:27)
[2020-08-25 05:01] LABS: Basophils # (A) 0.1 k/uL (0-0.2); Basophils % (A) 2 %; Eosinophils # (A) 0.2 k/uL (0-0.7); Eosinophils % (A) 2 %; HCT 46.7 % (39.0-53.0); HGB 15.5 gm/dL (13.0-17.5); Lymphocytes # (A) 1.6 k/uL (1.0-4.8); Lymphocytes % (A) 18 %; MCH 29.8 pg (25.0-35.0); MCHC 33.1 g/dL (31.0-37.0); Mean Platelet Volume 7.7; Monocytes # (A) 0.7 k/uL (0-1.0); Monocytes % (A) 7 %; Neutrophils # (A) 6.2 k/uL (1.3-7.7); Neutrophils % (A) 70 %; Platelet Count 161 k/uL (150-450); RBC 5.19 m/uL (4.30-5.90); RDW 13.4 % (11.5-15.5); WBC 8.9 k/uL (3.8-10.6)
[2020-08-25 05:10] LABS: African American GFR (CKD) >90 (>60 ml/min/1.73 sqM); Anion Gap 8 mmol/L; Blood Urea Nitrogen 20 mg/dL (9-20); Calcium 8.9 mg/dL (8.4-10.2); Carbon Dioxide 22 mmol/L (22-30); Chloride 105 mmol/L (98-107); Glucose 203 mg/dL (74-99); Non-African American GFR(CKD) 82 (>60 ml/min/1.73 sqM); Sodium 135 mmol/L (137-145)
[2020-08-25 05:27] LABS: Potassium 4.7 mmol/L (3.5-5.1)
--- NOTE | 2020-08-25 06:05 | ED ---
Neck Injury/Pain HPI - General Chief Complaint: Neck Pain/Injury Stated Complaint: neck pain Time Seen by Provider: 08/25/20 04:20 Mode of arrival: EMS Limitations: no limitations - History of Present Illness Initial Comments: this patient is 70-year-old man who states she had been fishing most of the day and into tonight. When he went home he noticed that he was having a stiff neck. He indicates pain to the left side of the posterior aspect of the neck. The patient indicates the sternocleidomastoid and paraspinal muscles. No weakness or numbness of the extremities no chest pain. No anginal symptoms. MD Complaint: neck pain -: hour(s) Place: home Radiation: right lateral Severity: moderate Quality: aching Consistency: constant Improves With: none Worsens With: movement of extremity, movement of neck Context: other (hysician) Associated Symptoms: none - Related Data Home Medications Medication Instructions Recorded Confirmed Amoxic-Pot Clav 875-125Mg 1 tab PO Q12HR 09/11/17 09/14/17 [Augmentin 875-125] Glimepiride [Amaryl] 2 mg PO HS 09/11/17 09/14/17 Simvastatin 40 mg PO HS 09/11/17 09/14/17 lisinopriL [Zestril] 10 mg PO HS 09/11/17 09/14/17 predniSONE 30 mg PO HS 09/11/17 09/14/17 sitaGLIPtin PHOSPHATE [Januvia] 100 mg PO HS 09/11/17 09/14/17 Previous Rx's Medication Instructions Recorded Amoxicillin/Potassium Clav 1 each PO Q12HR #20 tab 09/14/17 [Augmentin 875-125 Tablet] Hydrocodone/Acetaminophen [[place] 1 - 2 each PO Q6HR PRN #40 tab 09/14/17 5-325] predniSONE [Deltasone] 20 mg PO DIRECTED #15 tab 09/14/17 Cephalexin [Keflex] 500 mg PO Q6HR 10 Days #40 cap 03/19/20 diazePAM [Valium] 5 mg PO Q8HR 3 Days #15 tab 08/25/20 Allergies Allergy/AdvReac Type Severity Reaction Status Date / Time No Known Allergies Allergy Verified 08/25/20 04:01 Review of Systems ROS Statement: Those systems with pertinent positive or pertinent negative responses have been documented in the HPI. ROS Other: All systems not noted in ROS Statement are negative. Constitutional: Denies: fever, chills Respiratory: Denies: cough, dyspnea Cardiovascular: Denies: chest pain, palpitations, orthopnea Gastrointestinal: Denies: abdominal pain, vomiting Musculoskeletal: Reports: as per HPI Skin: Denies: rash Neurological: Denies: headache, weakness, numbness Past Medical History Past Medical History: Diabetes Mellitus, Hyperlipidemia, Hypertension History of Any Multi-Drug Resistant Organisms: None Reported Past Surgical History: Cholecystectomy, Orthopedic Surgery Additional Past Surgical History / Comment(s): sinus surgery, right hip Past Psychological History: No Psychological Hx Reported Smoking Status: Never smoker Past Alcohol Use History: None Reported Past Drug Use History: None Reported General Exam Limitations: no limitations General appearance: alert, in no apparent distress Head exam: Present: atraumatic, normocephalic Eye exam: Present: normal appearance ENT exam: Present: normal oropharynx Neck exam: Present: normal inspection, tenderness (left lateral neck tenderness over the muscles including the paraspinal and sternocleidomastoid noted). Absent: full ROM Respiratory exam: Present: normal lung sounds bilaterally. Absent: respiratory distress, wheezes, rales, rhonchi, stridor Cardiovascular Exam: Present: regular rate, normal rhythm, normal heart sounds. Absent: systolic murmur, diastolic murmur, rubs, gallop Extremities exam: Present: normal inspection, full ROM, normal capillary refill. Absent: tenderness Back exam: Present: normal inspection. Absent: CVA tenderness (R), CVA tenderness (L) Neurological exam: Present: alert. Absent: motor sensory deficit Skin exam: Present: warm, dry, intact, normal color. Absent: rash Course Vital Signs 08/25/20 08/25/20 03:55 06:54 Temperature 98.4 F Pulse Rate 80 78 Respiratory 19 17 Rate Blood Pressure 136/78 123/78 O2 Sat by Pulse 96 98 Oximetry Medical Decision Making - Lab Data Result diagrams: 08/25/20 04:48 08/25/20 04:48 Lab Results 08/25/20 08/25/20 08/25/20 Range/Units 04:48 04:48 04:48 WBC 8.9 (3.8-10.6) k/uL RBC 5.19 (4.30-5.90) m/uL Hgb 15.5 (13.0-17.5) gm/dL Hct 46.7 (39.0-53.0) % MCV 90.0 (80.0-100.0) fL MCH 29.8 (25.0-35.0) pg MCHC 33.1 (31.0-37.0) g/dL RDW 13.4 (11.5-15.5) % Plt Count 161 (150-450) k/uL Neutrophils % 70 % Lymphocytes % 18 % Monocytes % 7 % Eosinophils % 2 % Basophils % 2 % Neutrophils # 6.2 (1.3-7.7) k/uL Lymphocytes # 1.6 (1.0-4.8) k/uL Monocytes # 0.7 (0-1.0) k/uL Eosinophils # 0.2 (0-0.7) k/uL Basophils # 0.1 (0-0.2) k/uL Sodium 135 L (137-145) mmol/L Potassium 4.7 (3.5-5.1) mmol/L Chloride 105 (98-107) mmol/L Carbon Dioxide 22 (22-30) mmol/L Anion Gap 8 mmol/L BUN 20 (9-20) mg/dL Creatinine 0.95 (0.66-1.25) mg/dL Est GFR (CKD-EPI)AfAm >90 (>60 ml/min/1.73 sqM) Est GFR (CKD-EPI)NonAf 82 (>60 ml/min/1.73 sqM) Glucose 203 H (74-99) mg/dL Calcium 8.9 (8.4-10.2) mg/dL Troponin I <0.012 (0.000-0.034) ng/mL Disposition Clinical Impression: Acute torticollis Disposition: HOME SELF-CARE Condition: Good Instructions (If sedation given, give patient instructions): Cervical Strain (ED) Prescriptions: diazePAM [Valium] 5 mg PO Q8HR 3 Days #15 tab Is patient prescribed a controlled substance at d/c from ED?: Yes When asked, does pt state using other controlled substances?: No If prescribed controlled substance>3 days was MAPS reviewed?: Prescribed <3 Days If opioid is for acute pain is fill amount 7 days or less?: No If Rx opioid, was Start Talking consent form obtained?: No Referrals: Marylu Guevara MD [Primary Care Provider] - 1-2 days
[2020-08-25 06:54] VITALS: BP 123/78; PULSE 78; RESP 17
== END 2020-08-25 06:54 | disposition home or self-care (01) ==
LOC: EC 03:54
DX: M43.6 Torticollis (principal); E11.9 Type 2 diabetes mellitus without complications; E78.5 Hyperlipidemia, unspecified; I10 Essential (primary) hypertension; Z79.84 Long term (current) use of oral hypoglycemic drugs; Z79.899 Other long term (current) drug therapy
CPT/HCPCS: 36415; 93005; 80048; 84484; 85025; 99284; 96374; 96375; J3360; J1885

== ENCOUNTER → 2020-09-10 | Outpatient (CLI) | payer MEDICARE | END | disposition home or self-care (01) | LOC: LABWHC1 09:10 | PROVIDERS: ATTEND Family Medicine | DX: R07.0 Pain in throat (principal) | CPT/HCPCS: U0003; C9803 ==

== ENCOUNTER → 2021-08-10 | Outpatient (CLI) | payer MEDICARE | END | disposition home or self-care (01) | LOC: LABWHC1 11:20 | PROVIDERS: ATTEND Family Medicine | DX: R09.81 Nasal congestion (principal); Z20.822 Contact with and (suspected) exposure to COVID-19 | CPT/HCPCS: U0003; U0005 ==

== ENCOUNTER 2024-07-22 08:03 | Day surgery (SDC) | payer MEDICARE ==
[2024-07-21 08:55] VITALS: BMI 33.0
[~2024-07-22 08:03] MED LIST changes: -DEXAMETHASONE SOD PHOSPHATE 4 MG/ML 1 ML VIAL IV ONE; -FAMOTIDINE 20 MG/2 ML VIAL IV ONE; -LACTATED RINGERS 1,000 ML IV SCH; +LIDOCAINE 1% (10MG/ML) FOR IV START INTRADERMA PRN; -MORPHINE SULFATE 2 MG/ML SYRINGE IV PRN; -ONDANSETRON 4 MG/2 ML VIAL IVP ONE; -ONDANSETRON 4 MG/2 ML VIAL IVP PRN; -ceFAZolin IN SWFI 2 GM/20 ML SYRINGE IVP ONE
[2024-07-22 08:43] VITALS: RESP 16; TEMP 97.5
[2024-07-22] MEDS: LACTATED RINGERS 1,000 ML IV SCH (08:48)
[2024-07-22] MEDS ORDERED: PROPOFOL 10 MG/ML 20 ML VIAL IV ONE (08:55)
[2024-07-22] MEDS ORDERED: LIDOCAINE 1% INJ 10MG/ML (20 ML MDV) ONE (08:55)
[2024-07-22] MEDS: LACTATED RINGERS 1,000 ML IV ONE ×2 (08:59→09:02)
--- NOTE | 2024-07-22 09:18 | P.PCN ---
Date of Procedure: 07/22/24 Procedure(s) Performed: BRIEF HISTORY: Patient is a 74-year-old pleasant white male scheduled for an elective colonoscopy as a part of dilation by history of colon polyps. Last colonoscopy was 6 years ago. PROCEDURE PERFORMED: Colonoscopy snare polypectomy. PREOPERATIVE DIAGNOSIS: History of colon. IV sedation per Anesthesia. PROCEDURE: After informed consent was obtained, the patient, was brought into the endoscopy unit. IV sedation was administered by Anesthesia under continuous monitoring. Digital rectal examination was normal. Initially the Olympus CF-160 flexible video colonoscope was then inserted in the rectum, gradually advanced into the cecum without any difficulty. Careful examination was performed as the scope was gradually being withdrawn. Ileocecal valve and the appendiceal orifice were visualized and appeared normal. Prep was excellent. Mucosa of the cecum, ascending colon normal. The transverse colon there was a 6 mm sessile polyp removed by cold snare polypectomy. Rest of the, transverse colon, descending colon, sigmoid colon, and rectum appeared normal. Retroflexion was performed in the rectum and no lesions were seen. The patient tolerated the procedure well. IMPRESSION: 6 mm transverse colon polyp status post cold snare polypectomy Rest of the colon was normal RECOMMENDATIONS: Findings of this examination were discussed with the patient as well as her family. He was advised to follow the biopsy results. If the biopsy was adenoma he can have repeat colonoscopy in 5 years.
[2024-07-22 09:39] VITALS: BP 95/67; PULSE 77
[2024-07-25 11:46] LABS: Glucose,Whole Blood 108 mg/dL (70-110)
== END 2024-07-22 09:58 | disposition home or self-care (01) ==
LOC: ORWHC2ENDO 08:03
PROVIDERS: ATTEND Internal Medicine Gastroenterology
DX: Z86.010 Personal history of colon polyps
CPT/HCPCS: 45385; 88305